=== PATIENT | male | born 1985 | race Caucasian/White ===

== ENCOUNTER 2018-08-14 20:41 | Emergency (ER) | payer OTHER ==
--- NOTE | 2018-08-14 21:21 | ED Physician Chart ---
ED Chief Complaint/HPI - Patient Information Date Seen:: 08/14/18 Time Seen:: 21:00 Chief Complaint:: headache History of Present Illness:: Patient had gradual onset of a right-sided headache 5 days ago. No aura. No fever. Headache is worse in the morning. No vomiting. This is a patient's worse headache ever. Patient's headache is currently mild: 1-2 out of 10. Allergies:: Allergies Allergy/AdvReac Type Severity Reaction Status Date / Time No Known Allergies Allergy Verified 08/14/18 21:05 Vitals:: Vital Signs - 8 hr 08/14/18 20:50 Temp 97.2 F HR 60 RR 18 BP 133/76 O2 Sat % 97 Historian:: Patient Review:: Nurse's Note Reviewed ED Review of Systems - Review of Systems General/Constitutional: No fever, No chills, No weight loss, No weakness, No diaphoresis, No edema, No loss of appetite Skin: No skin lesions, No rash, No bruising Head: No headache, No light-headedness Eyes: No loss of vision, No pain, No diplopia ENT: No earache, No nasal drainage, No sore throat, No tinnitus Neck: No neck pain, No swelling, No thyromegaly, No stiffness, No mass noted Cardio Vascular: No chest pain, No palpitations, No PND, No orthopnea, No edema Pulmonary: No SOB, No cough, No sputum, No wheezing GI: No nausea, No vomiting, No diarrhea, No pain, No melena, No hematochezia, No constipation, No hematemesis G/U: No dysuria, No frequency, No hematuria Musculoskeletal: No bone or joint pain, No back pain, No muscle pain Endocrine: No polyuria, No polydipsia Psychiatric: No prior psych history, No depression, No anxiety, No suicidal ideation Hematopoietic: No bruising, No lymphadenopathy Allergic/Immuno: No urticaria, No angioedema Neurological: No syncope, No focal symptoms, No weakness, No paresthesia, Headache, No seizure, No dizziness, No confusion, No vertigo ED Past Medical History - Past Medical History Obtainable: No Family History: HTN Social History: Non Smoker, Alcohol, Other (social alcohol consumption) Surgical History: None Psychiatricy History: None Family Medical History - Family Member Father Ethnicity: Living Status: Still Living ED Physical Exam - Physical Examination General/Constitutional: Awake, Well-developed, well-nourished, Alert, No distress, GCS 15, Non-toxic appearing, Ambulatory Head: Atraumatic Eyes: Lids, conjuctiva normal, PERRL, EOMI Other Eyes comments:: Optic disc are sharp; spontaneous venous pulsation noted Skin: Nl inspection, No rash, No skin lesions, No ecchymosis, Well hydrated, No lymphadenopathy ENMT: External ears, nose nl, Nasal exam nl, Lips, teeth, gums nl Neck: Nontender, Full ROM w/o pain, No JVD, No nuchal rigidity, No bruit, No mass, No stridor Respiratory: Nl effort/Exclusion, Clear to Auscultation, No Wheeze/Rhonchi/Rales Cardio Vascular: RRR, No murmur, gallop, rubs, NL S1 S2 GI: No tenderness/rebounding/guarding, No organomegaly, No hernia, Normal BS's, Nondistended, No mass/bruits, No McBurney tenderness : No CVA tenderness Extremities: No tenderness or effusion, Full ROM, normal strength in all extremities, No edema, Normal digits & nails Neuro/Psych: Alert/oriented, No focal deficits Other Neuro/Psych comments:: No facial asymmetry; strong equal hand grasp; finger to nose and heel to paul test intact Misc: Normal back, No paraspinal tenderness ED Assessment - Assessment General Assessment: After the patient received Imitrex 50 mg orally his headache pain increased from one out of 10 to 6 out of ten. I then gave the patient Tylenol 1 g orally. His headache persisted. Then I gave the patient Toradol 30 mg intramuscularly. Thinking that the patient might be having a cluster headache I gave the patient 4 L of oxygen by nasal cannula. Patient's headache greatly improved which he attributed to Toradol not to the oxygen by nasal cannula. The fact that the Imitrex did not decrease the patient's headache is not proof that he is not having a migraine headache since Imitrex works best when started soon after symptom onset and this patient's headache has already been going on for 5 days. I told the patient that if his headache continues he should have an MRI of the brain. However physical exam does not suggest any increased intracranial pressure since the optic disks were sharp and spontaneous venous pulsation was seen. ED Septic Shock - . Is Septic Shock (SBP<90, OR Lactate>4 mmol\L) present?: No - <6hrs of presentation: Vital Signs: Vital Signs - 8 hr 08/14/18 20:50 Temp 97.2 F HR 60 RR 18 BP 133/76 O2 Sat % 97 ED Reassessment (Disposition) - Reassessment Reassessment Condition:: Improved - Diagnosis Diagnosis:: Nonspecific cephalgia - Aftercare/Follow up Instructions Aftercare/Follow-Up Instructions:: Refer to Discharge Instructions - Patient Disposition Discharge/Transfer:: Home Condition at Disposition:: Stable, Improved
[2018-08-14] MEDS ORDERED: Acetaminophen 500 MG TAB ONE (22:05)
== END 2018-08-14 23:50 | disposition home or self-care (01) ==
LOC: ER 20:41
DX: R51 Headache (principal)
CPT/HCPCS: 99283; 96372; J1885; Z7502; Z7610